=== PATIENT | female | born 1950 | race Two or more races ===

== ENCOUNTER 2017-07-02 10:36 | Outpatient (CLI) | payer OTHER | END 2017-07-02 10:44 | disposition home or self-care (01) | LOC: RAD 10:36 | DX: J20.9 Acute bronchitis, unspecified (principal); J45.31 Mild persistent asthma with (acute) exacerbation ==

== ENCOUNTER 2017-11-20 11:58 | Outpatient (CLI) | payer OTHER | END 2017-11-20 12:12 | disposition home or self-care (01) | LOC: MAMO-SONO 11:58 | DX: Z12.31 Encounter for screening mammogram for malignant neoplasm of breast (principal); Z87.898 Personal history of other specified conditions; N60.19 Diffuse cystic mastopathy of unspecified breast ==

== ENCOUNTER 2018-06-18 12:49 | Outpatient (CLI) | payer OTHER | END 2018-06-18 13:16 | disposition home or self-care (01) | LOC: RAD 12:49 | DX: H53.9 Unspecified visual disturbance (principal); Z01.818 Encounter for other preprocedural examination ==

== ENCOUNTER → 2019-04-24 | Emergency (ER) | payer OTHER ==
[~2019-04-24] VITALS: Ht 149.9 cm; Wt 60.8 kg
[~2019-04-24] MED LIST: CANDESARTAN CILE8 M1; JANUVIA25 MG; LIPITOR20 MG; LYRICA50 MG PO; PLAVIX75 MG; PREVACID30 M1; SYMBICORT 16010.2 GM; ULTRAM50 MG; ZYRTEC10 MG
== END | disposition home or self-care (01) ==
LOC: ER 14:00
DX: S80.01XA Contusion of right knee, initial encounter (principal); W18.09XA Striking against other object with subsequent fall, initial encounter; Y93.89 Activity, other specified; Y92.481 Parking lot as the place of occurrence of the external cause; Y99.8 Other external cause status

== ENCOUNTER 2019-06-25 11:27 | Outpatient (CLI) | payer OTHER | END 2019-06-25 11:29 | disposition home or self-care (01) | LOC: MRI 11:27 | DX: M51.87 Other intervertebral disc disorders, lumbosacral region (principal) | CPT/HCPCS: 72148 ==

== ENCOUNTER 2019-11-11 13:02 | Outpatient (CLI) | payer OTHER | END 2019-11-11 13:08 | disposition home or self-care (01) | LOC: NUCLEAR 13:02 | PROVIDERS: ATTEND General Practice | DX: M89.8X0 Other specified disorders of bone, multiple sites (principal); M85.88 Other specified disorders of bone density and structure, other site; M85.89 Other specified disorders of bone density and structure, multiple sites ==

== ENCOUNTER 2019-11-11 14:43 | Outpatient (CLI) | payer OTHER | END 2019-11-11 14:50 | disposition home or self-care (01) | LOC: MAMO-SONO 14:43 | PROVIDERS: ATTEND General Practice | DX: Z12.31 Encounter for screening mammogram for malignant neoplasm of breast (principal); Z12.39 Encounter for other screening for malignant neoplasm of breast ==

== ENCOUNTER 2021-03-21 08:00 | Outpatient (CLI) | payer OTHER | END 2021-03-21 14:34 | disposition home or self-care (01) | LOC: PPH VACUNA 08:00 | PROVIDERS: ATTEND Emergency Medicine Pediatric Emergency Medicine | DX: Z23 Encounter for immunization (principal) ==

== ENCOUNTER 2021-06-28 11:08 | Outpatient (CLI) | payer OTHER | END 2021-06-28 11:21 | disposition home or self-care (01) | LOC: RAD 11:08 | PROVIDERS: ATTEND Physical Medicine & Rehabilitation | DX: M51.16 Intervertebral disc disorders with radiculopathy, lumbar region (principal); M47.817 Spondylosis without myelopathy or radiculopathy, lumbosacral region; M54.2 Cervicalgia; M41.20 Other idiopathic scoliosis, site unspecified; M54.50 Low back pain, unspecified; M25.551 Pain in right hip; M25.552 Pain in left hip | CPT/HCPCS: 72141; 72148 ==

== ENCOUNTER 2022-02-26 13:02 | Outpatient (CLI) | payer OTHER | END 2022-02-26 13:03 | disposition home or self-care (01) | LOC: NUCLEAR 13:02 | PROVIDERS: ATTEND General Practice | DX: M85.88 Other specified disorders of bone density and structure, other site (principal); M89.8X9 Other specified disorders of bone, unspecified site; Z88.0 Allergy status to penicillin; Z88.6 Allergy status to analgesic agent; Z91.013 Allergy to seafood; Z88.8 Allergy status to other drugs, medicaments and biological substances ==

== ENCOUNTER 2022-03-01 09:52 | Outpatient (CLI) | payer OTHER | END 2022-03-01 10:08 | disposition home or self-care (01) | LOC: MAMO-SONO 09:52 | PROVIDERS: ATTEND General Practice | DX: Z12.31 Encounter for screening mammogram for malignant neoplasm of breast (principal); Z12.39 Encounter for other screening for malignant neoplasm of breast; R92.1 Mammographic calcification found on diagnostic imaging of breast ==

== ENCOUNTER 2023-03-06 11:33 | Outpatient (CLI) | payer OTHER | END 2023-03-06 11:53 | disposition home or self-care (01) | LOC: MRI 11:33 | DX: S83.241A Other tear of medial meniscus, current injury, right knee, initial encounter (principal); Z88.0 Allergy status to penicillin; Z88.6 Allergy status to analgesic agent; Z91.013 Allergy to seafood | CPT/HCPCS: 73721 ==

== ENCOUNTER 2023-04-19 10:58 | Outpatient (CLI) | payer OTHER | END 2023-04-19 11:06 | disposition home or self-care (01) | LOC: MAMO-SONO 10:58 | PROVIDERS: ATTEND General Practice | DX: Z12.31 Encounter for screening mammogram for malignant neoplasm of breast (principal); Z12.39 Encounter for other screening for malignant neoplasm of breast; R92.1 Mammographic calcification found on diagnostic imaging of breast ==

== ENCOUNTER 2024-04-22 09:01 | Outpatient (CLI) | payer OTHER | END 2024-04-22 09:11 | disposition home or self-care (01) | LOC: MAMO-SONO 09:01 | PROVIDERS: ATTEND Family Medicine | DX: N64.4 Mastodynia (principal); Z12.31 Encounter for screening mammogram for malignant neoplasm of breast ==